=== PATIENT | female | born 1975 | race Caucasian/White ===

== ENCOUNTER 2017-05-10 09:24 | Emergency (ER) | payer OTHER ==
[~2017-05-10] VITALS: Ht 162.6 cm; Wt 47.7 kg
[2017-05-10] MEDS ORDERED: BYST5TAB2 PO (09:31)
[2017-05-10 11:16] VITALS: BP 166/89
--- NOTE | 2017-05-10 11:24 | REP ---
LEFT FOOT, FOUR VIEWS: There is no evidence of an acute fracture, dislocation or intrinsic bone disease. IMPRESSION: No fracture or dislocation. Signed by Jose Young MD 05/10/2017 07:28 P
== END 2017-05-10 11:17 | disposition home or self-care (01) ==
LOC: M ED 09:24
DX: S99.922A Unspecified injury of left foot, initial encounter (principal); X50.1XXA Overexertion from prolonged static or awkward postures, initial encounter; Y92.9 Unspecified place or not applicable; Y93.9 Activity, unspecified; Y99.9 Unspecified external cause status; I10 Essential (primary) hypertension; N80.9 Endometriosis, unspecified; Z79.899 Other long term (current) drug therapy

== ENCOUNTER 2017-07-20 18:22 | Emergency (ER) | payer OTHER ==
[~2017-07-20] VITALS: Ht 162.6 cm; Wt 48.6 kg
[~2017-07-20 18:22] MED LIST: BYST5TAB2 PO
[2017-07-20] MEDS ORDERED: MULTLIQ7 PO (18:40)
[2017-07-20] MEDS ORDERED: KETOROLAC 30 MG/ML VIAL (J1885) IM ONE (20:00)
--- NOTE | 2017-07-20 21:00 | REPUSA ---
Clinical history: Pain. Findings: Real-time transabdominal and transvaginal ultrasound images of the pelvis were obtained. An anteverted uterus is noted, measuring 8.2 x 4.7 x 5.9 cm. There is a left fundal fibroid measuring 4 .0 x 3.2 x 3.4 cm. The uterus demonstrates normal echotexture and echogenicity. The endometrial strip e measures 11 mm. The right ovary measures 3.3 x 2.2 x 4.0 cm. The left ovary measures 4.5 x 3.1 x 3. 4 cm . There is a complex left ovarian cyst measuring 2.4 x 1.5 x 2.0 cm. No adnexal masses are seen. Color Doppler flow is seen within both ovaries. There is trace amount of free fluid in the [place] c. Impression: 1. Complex left ovarian cyst. 2. Left fundal fibroid.
[2017-07-20] MEDS ORDERED: traMADol 50 MG TAB (BULK 4 TAB ED) PO ONE (21:15)
[2017-07-20] MEDS ORDERED: ULTR50TA8 PO (21:15)
[2017-07-20] MEDS ORDERED: KETO10TAB PO (21:21)
[2017-07-20 21:36] VITALS: BP 172/97
--- NOTE | 2017-07-21 10:52 | ED PDOC ---
Post-Departure Follow-Up pt sent certified letter re formal report of pelvic us . needs fu. 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 please obtain and fax to tobacco prevention health educator. Amanda Bills MD Jul 21, 2017 10:52
== END 2017-07-20 21:37 | disposition home or self-care (01) ==
LOC: M ED 18:22
DX: N83.202 Unspecified ovarian cyst, left side (principal); D25.9 Leiomyoma of uterus, unspecified; N80.9 Endometriosis, unspecified; Z79.899 Other long term (current) drug therapy
CPT/HCPCS: 76830; 76856; 81001; 81025; 87088; 87186; 93976; 96372; 99283; J1885

== ENCOUNTER → 2017-12-13 | Outpatient (REF) | payer OTHER ==
[2017-12-13 12:53] LABS: INFLUENZA A AMPLIFICATION NEGATIVE (NEGATIVE); INFLUENZA B AMPLIFICATION NEGATIVE (NEGATIVE)
== END ==
LOC: M LAB REF 12:04
DX: J02.9 Acute pharyngitis, unspecified (principal); R50.9 Fever, unspecified
CPT/HCPCS: 87430

== ENCOUNTER → 2018-11-01 | Outpatient (REF) | payer OTHER ==
[~2018-11-01] MED LIST changes: +KETO10TAB PO; +MULTLIQ7 PO; +ULTR50TA8 PO
[2018-11-01 13:46] LABS: INFLUENZA B AMPLIFICATION NEGATIVE (NEGATIVE)
[2018-11-04 09:55] LABS: INFLUENZA A AMPLIFICATION POSITIVE (NEGATIVE)
== END ==
LOC: M LAB REF 11:50
PROVIDERS: ATTEND Physician Assistant Medical
DX: J11.1 Influenza due to unidentified influenza virus with other respiratory manifestations (principal)

== ENCOUNTER → 2019-01-09 | Outpatient (REF) | payer OTHER ==
[2019-01-09 14:11] LABS: INFLUENZA A AMPLIFICATION NEGATIVE (NEGATIVE); INFLUENZA B AMPLIFICATION NEGATIVE (NEGATIVE)
== END ==
LOC: M LAB REF 13:28
PROVIDERS: ATTEND Nurse Practitioner Family
DX: J11.1 Influenza due to unidentified influenza virus with other respiratory manifestations (principal)

== ENCOUNTER → 2019-09-19 | Outpatient (REF) | payer OTHER | LOC: M LAB REF 13:00 | PROVIDERS: ATTEND Physician Assistant Medical | DX: J02.9 Acute pharyngitis, unspecified (principal) ==

== ENCOUNTER → 2019-11-18 | Outpatient (REF) | payer OTHER ==
[2019-11-18 15:24] LABS: INFLUENZA A AMPLIFICATION NEGATIVE (NEGATIVE); INFLUENZA B AMPLIFICATION NEGATIVE (NEGATIVE)
== END ==
LOC: M LAB REF 14:38
PROVIDERS: ATTEND Physician Assistant Medical
DX: R50.9 Fever, unspecified (principal)

== ENCOUNTER 2019-12-14 21:29 | Emergency (ER) | payer OTHER ==
[~2019-12-14] VITALS: Ht 162.6 cm; Wt 56.8 kg
[2019-12-15] MEDS ORDERED: LABETALOL HCL 100 MG/20 ML VIAL IV STA
[2019-12-15 00:16] VITALS: BP 148/86
[2019-12-15 00:16] LABS: HEMATOCRIT 44.1 % (36.0-47.0); MEAN CORPUSCULAR HEMOGLOBIN 30.5 pg (27.0-33.0); MEAN CORPUSCULAR VOLUME 89.6 fl (80.0-96.0); PLATELET COUNT, AUTOMATED 340 10^3/uL (150-450); RED BLOOD COUNT 4.92 10^6/uL (4.00-5.40); WHITE BLOOD COUNT 8.3 10^3/uL (4.0-10.0)
[2019-12-15 00:27] LABS: HCG, SERUM QUALITATIVE NEGATIVE (NEGATIVE)
[2019-12-15 00:33] LABS: BLOOD UREA NITROGEN 21 MG/DL (7-18); CALCIUM LEVEL 10.1 MG/DL (8.5-10.1); CARBON DIOXIDE LEVEL 26 MEQ/L (21-32); CHLORIDE LEVEL 105 MEQ/L (98-107); CREATININE FOR GFR 0.88 MG/DL (0.55-1.30); GLOMERULAR FILTRATION RATE > 60.0 (>58); GLUCOSE, FASTING 97 MG/DL (70-100); SODIUM LEVEL 136 MEQ/L (136-145)
[2019-12-15] MEDS ORDERED: ISOVUE-370 76% 100ML VIAL (Q9967) As Ordered ONE (00:45)
[2019-12-15 01:03] VITALS: BP 148/86
--- NOTE | 2019-12-15 01:24 | REPVR ---
PROCEDURE INFORMATION: Exam: CT Angiography Head With Contrast Exam date and time: 12/14/2019 11:37 PM Age: 44 years old Clinical indication: Other: Eye problem right; Prior surgery; Surgery date: 6+ months; Surgery type: Laser eye for aneurysm. . . PT states she not remember which eye. . . SX 15 years ago. . . ; Additional info: Eye pain HX optic aneurysm TECHNIQUE: Imaging protocol: Computed tomography angiography of the head with intravenous contrast. 3D rendering: MIP and/or 3D reconstructed images were created by the technologist. Radiation optimization: All CT scans at this facility use at least one of these dose optimization techniques: automated exposure control; mA and/or kV adjustment per patient size (includes targeted exams where dose is matched to clinical indication); or iterative reconstruction. Contrast material: ISO; Contrast volume: 75 ml; Contrast route: AC; COMPARISON: No relevant prior studies available. FINDINGS: Right internal carotid artery: Unremarkable. Intracranial segment is patent with no significant stenosis. No aneurysm. Right anterior cerebral artery: Unremarkable. No occlusion or significant stenosis. No aneurysm. Right middle cerebral artery: Unremarkable. No occlusion or significant stenosis. No aneurysm. Right posterior cerebral artery: Unremarkable. No occlusion or significant stenosis. No aneurysm. Right vertebral artery: Unremarkable. No occlusion or significant stenosis. No aneurysm. Left internal carotid artery: Unremarkable. Intracranial segment is patent with no significant stenosis. No aneurysm. Left anterior cerebral artery: Unremarkable. No occlusion or significant stenosis. No aneurysm. Left middle cerebral artery: Unremarkable. No occlusion or significant stenosis. No aneurysm. Left posterior cerebral artery: Unremarkable. No occlusion or significant stenosis. No aneurysm. Left vertebral artery: Unremarkable. No occlusion or significant stenosis. No aneurysm. Basilar artery: Unremarkable. No occlusion or significant stenosis. No aneurysm. HEAD: Sinuses: Mild mucosal thickening in the paranasal sinuses. IMPRESSION: 1. No large vessel arterial occlusion. 2. No cerebral aneurysm. Electronically signed by: Wojciech Whitaker On 12/15/2019 01:23:37 AM
[2019-12-15] MEDS ORDERED: traMADol 50 MG TAB PO ONE (01:45)
== END 2019-12-15 02:23 | disposition home or self-care (01) ==
LOC: M ED 21:29
DX: R51 Headache (principal); I10 Essential (primary) hypertension; Z79.899 Other long term (current) drug therapy; Z91.010 Allergy to peanuts; Z91.018 Allergy to other foods; Z88.2 Allergy status to sulfonamides
CPT/HCPCS: 70496; 80048; 84703; 85027; 99284; Q9967

== ENCOUNTER → 2020-10-04 | Outpatient (REF) | payer OTHER | LOC: M LAB REF 16:28 | PROVIDERS: ATTEND Physician Assistant | DX: Z11.59 Encounter for screening for other viral diseases (principal) ==

== ENCOUNTER → 2020-11-01 | Outpatient (REF) | payer OTHER | LOC: M LAB REF 22:06 | PROVIDERS: ATTEND Physician Assistant | DX: R50.9 Fever, unspecified (principal); R05 Cough ==

== ENCOUNTER 2021-04-09 23:41 | Emergency (ER) | payer OTHER ==
[~2021-04-09] VITALS: Ht 162.6 cm; Wt 55.4 kg
[2021-04-10] MEDS ORDERED: VALT1TAB PO (00:04)
[2021-04-10] MEDS ORDERED: APRITAB PO (00:05)
[2021-04-10] MEDS ORDERED: cefTRIAXone SOD 1GM VIAL (J0696 PER 250MG) IM ONE (06:20)
[2021-04-10] MEDS ORDERED: LIDOCAINE 1% SDV 5ML VIAL DILUENT ONE (06:20)
[2021-04-10] MEDS ORDERED: CEPH500C PO (06:24)
[2021-04-10 06:45] VITALS: BP 132/62
== END 2021-04-10 06:47 | disposition home or self-care (01) ==
LOC: M ED 23:41
DX: L03.114 Cellulitis of left upper limb (principal); I10 Essential (primary) hypertension; Z88.1 Allergy status to other antibiotic agents; Z88.2 Allergy status to sulfonamides; Z91.018 Allergy to other foods; Z91.010 Allergy to peanuts
CPT/HCPCS: 96372; 99283; J0696

== ENCOUNTER → 2021-09-25 | Outpatient (REF) | payer OTHER ==
[~2021-09-25] MED LIST changes: +APRITAB PO; +CEPH500C PO; +VALT1TAB PO
== END ==
LOC: M LAB REF 12:33
PROVIDERS: ATTEND Physician Assistant
DX: R05.9 Cough, unspecified (principal); R50.9 Fever, unspecified

== ENCOUNTER 2021-10-20 01:21 | Emergency (ER) | payer OTHER ==
[~2021-10-20] VITALS: Ht 162.6 cm; Wt 56.8 kg
[2021-10-20 01:22] VITALS: BP 194/90
[2021-10-20 04:46] LABS: RSV AMPLIFICATION NEGATIVE (NEGATIVE)
== END 2021-10-20 04:10 | disposition left against medical advice (07) ==
LOC: M ED 01:21
DX: Z53.21 Procedure and treatment not carried out due to patient leaving prior to being seen by health care provider (principal)

== ENCOUNTER → 2021-10-20 | Outpatient (REF) | payer OTHER | LOC: M LAB REF 15:50 | PROVIDERS: ATTEND Physician Assistant | DX: J02.9 Acute pharyngitis, unspecified (principal); R53.83 Other fatigue ==

== ENCOUNTER 2022-01-19 22:41 | Emergency (ER) | payer OTHER ==
[~2022-01-19] VITALS: Ht 162.6 cm; Wt 59.1 kg
[2022-01-19 22:42] VITALS: BP 177/93
[2022-01-20] MEDS ORDERED: KETOROLAC 30 MG/ML 1ML VIAL IM ONE
== END 2022-01-20 01:06 | disposition home or self-care (01) ==
LOC: M ED 22:41
DX: S92.331A Displaced fracture of third metatarsal bone, right foot, initial encounter for closed fracture (principal); S92.341A Displaced fracture of fourth metatarsal bone, right foot, initial encounter for closed fracture; W18.49XA Other slipping, tripping and stumbling without falling, initial encounter; Y92.9 Unspecified place or not applicable; Y93.9 Activity, unspecified; Y99.9 Unspecified external cause status
CPT/HCPCS: 73630; 96372; 99283; J1885

== ENCOUNTER 2022-03-29 01:34 | Emergency (ER) | payer OTHER ==
[~2022-03-29] VITALS: Ht 162.6 cm; Wt 61.4 kg
[2022-03-29] MEDS ORDERED: BESI0.6S OP (01:40)
[2022-03-29] MEDS ORDERED: FLUORESCEIN OPHTH 1 MG STRIP OS ONE (03:40)
[2022-03-29] MEDS ORDERED: TETRACAINE 0.5% OPHTH SOLN 4ML OS ONE (03:40)
[2022-03-29] MEDS ORDERED: ERYT5OIN25 OS (04:02)
[2022-03-29] MEDS ORDERED: ERYTHROMYCIN OPHTH OINT OS ONE (04:05)
[2022-03-29 04:09] VITALS: BP 126/73
== END 2022-03-29 04:10 | disposition home or self-care (01) ==
LOC: M ED 01:34
DX: S05.02XA Injury of conjunctiva and corneal abrasion without foreign body, left eye, initial encounter (principal); X58.XXXA Exposure to other specified factors, initial encounter; Y92.89 Other specified places as the place of occurrence of the external cause; Y93.89 Activity, other specified; Y99.8 Other external cause status; Y77.11 Contact lens associated with adverse incidents; I10 Essential (primary) hypertension; Z79.899 Other long term (current) drug therapy; Z91.010 Allergy to peanuts; Z88.1 Allergy status to other antibiotic agents; Z88.2 Allergy status to sulfonamides; Z91.018 Allergy to other foods

== ENCOUNTER → 2022-05-28 | Outpatient (REF) | payer OTHER ==
[~2022-05-28] MED LIST changes: +BESI0.6S OP; +ERYT5OIN25 OS
[2022-05-28 20:00] LABS: BASO # 0.1 10^3/uL (0.0-0.2); BASO % 0.7 % (0.0-1.0); EOS # 0.4 10^3/uL (0.0-0.5); EOS % 4.9 % (0.0-3.0); HEMATOCRIT 40.5 % (36.0-47.0); HEMOGLOBIN 13.4 g/dl (12.0-15.5); LYMPH # 2.7 10^3/uL (1.5-5.0); LYMPH % 36.1 % (24.0-44.0); MEAN CORPUSCULAR HGB CONC 33.1 g/dl (32.0-36.5); MEAN CORPUSCULAR VOLUME 87.7 fl (80.0-96.0); MONO # 0.7 10^3/uL (0.0-0.8); MONO % 9.5 % (2.0-8.0); NEUTROPHILS # 3.7 10^3/uL (1.5-8.5); NEUTROPHILS % 48.5 % (36.0-66.0); PLATELET COUNT, AUTOMATED 426 10^3/uL (150-450); RED BLOOD COUNT 4.62 10^6/uL (4.00-5.40); WHITE BLOOD COUNT 7.5 10^3/uL (4.0-10.0)
[2022-05-30 18:07] LABS: EBV AB TO NUCLEAR ANTIGEN >600.0 U/mL (0.0-17.9); EBV VIRAL CAPSID AG IgM <36.0 U/mL (0.0-35.9)
== END ==
LOC: M LAB REF 19:34
PROVIDERS: ATTEND Physician Assistant
DX: G50.1 Atypical facial pain (principal)

== ENCOUNTER → 2022-08-12 | Outpatient (CLI) | payer OTHER ==
[~2022-08-12] MED LIST changes: +METHACHOLINE KIT (J7674) INH ONE
== END ==
LOC: M CARPUL 09:36
PROVIDERS: ATTEND Internal Medicine Pulmonary Disease
DX: R06.00 Dyspnea, unspecified (principal)
CPT/HCPCS: 94070; J7674

== ENCOUNTER 2022-10-06 08:37 | Emergency (ER) | payer OTHER ==
[~2022-10-06] VITALS: Ht 162.6 cm; Wt 66.8 kg
[~2022-10-06 08:37] MED LIST changes: -METHACHOLINE KIT (J7674) INH ONE
[2022-10-06] MEDS ORDERED: GI COCKTAIL 50ML BTL(HYOSCYAMINE/MAALOX/LIDOCAINE VISCOUS)(1:3:1) PO ONE (09:00)
[2022-10-06] MEDS ORDERED: ONDANSETRON 4MG 2ML VIAL IV ONE (12:30)
[2022-10-06] MEDS ORDERED: NS 1,000 ML IV ONE (12:30)
[2022-10-06 13:37] LABS: APPEARANCE, URINE MANUAL HAZY (CLEAR)
[2022-10-06 13:38] LABS: COLOR, URINE MANUAL YELLOW (YELLOW)
[2022-10-06 13:40] LABS: PROTEIN, URINE MANUAL TRACE mg/dL (NEGATIVE); SPECIFIC GRAVITY,URINE MANUAL 1.026 (1.002-1.035)
[2022-10-06 13:41] LABS: GLUCOSE, URINE (UA) MANUAL NEGATIVE (NEGATIVE); KETONE, URINE MANUAL 2+ mg/dL (NEGATIVE); UROBILINOGEN, URINE MANUAL NORMAL (NORMAL)
[2022-10-06 13:42] LABS: BILIRUBIN, URINE MANUAL NEGATIVE (NEGATIVE); BLOOD URINE MANUAL POSITIVE (NEGATIVE); LEUKOCYTE ESTERASE, URINE MAN NEGATIVE (NEGATIVE); NITRITE, URINE MANUAL NEGATIVE (NEGATIVE)
[2022-10-06 13:45] LABS: BASO % 0.2 % (0.0-1.0); EOS % 0.3 % (0.0-3.0); HEMATOCRIT 45.6 % (36.0-47.0); HEMOGLOBIN 15.2 g/dl (12.0-15.5); LYMPH # 0.7 10^3/uL (1.5-5.0); MEAN CORPUSCULAR HEMOGLOBIN 28.7 pg (27.0-33.0); MEAN CORPUSCULAR HGB CONC 33.3 g/dl (32.0-36.5); MONO # 0.3 10^3/uL (0.0-0.8); MONO % 4.2 % (2.0-8.0); NEUTROPHILS % 83.1 % (36.0-66.0); PLATELET COUNT, AUTOMATED 381 10^3/uL (150-450)
[2022-10-06 13:52] LABS: SQUAMOUS EPITHELIAL CELL URINE MOD AMOUNT /hpf (SMALL AMT)
[2022-10-06 13:53] LABS: BACTERIA, URINE SMALL AMOUNT; HYALINE CAST, URINE 0-1 /lpf (0-1)
[2022-10-06 14:06] LABS: LIPASE 27 U/L (12-53)
[2022-10-06 14:08] LABS: ALBUMIN 3.4 G/DL (3.2-5.2); ALKALINE PHOSPHATASE 65 U/L (46-116); ALT/SGPT 23 U/L (7.0-40); AST/SGOT 24 U/L (<34); BILIRUBIN,DIRECT 0.1 MG/DL (<0.4); BILIRUBIN,TOTAL 0.5 MG/DL (0.3-1.2); BLOOD UREA NITROGEN 13 MG/DL (9-23); CALCIUM LEVEL 8.8 MG/DL (8.5-10.1); CARBON DIOXIDE LEVEL 23 MMOL/L (20-31); CHLORIDE LEVEL 104 MMOL/L (98-107); CREATININE FOR GFR 0.74 MG/DL (0.55-1.30); GLOMERULAR FILTRATION RATE > 60.0 (>58); GLUCOSE, FASTING 98 MG/DL (60-100); HCG, SERUM QUANTITATIVE < 2.6 MIU/ML (<4.2); POTASSIUM SERUM 4.2 MMOL/L (3.5-5.1); SODIUM LEVEL 137 MMOL/L (136-145); TOTAL PROTEIN 7.4 G/DL (5.7-8.2)
[2022-10-06] MEDS ORDERED: KETOROLAC 30 MG/ML 1ML VIAL IV ONE (14:25)
[2022-10-06 14:37] LABS: RSV AMPLIFICATION NEGATIVE (NEGATIVE)
[2022-10-06] MEDS ORDERED: ISOVUE-370 76% 100ML VIAL As Ordered ONE (14:41)
[2022-10-06 16:32] LABS: CK-MB VALUE MASS < 1.0 NG/ML (<3.6)
[2022-10-06 16:34] LABS: CPK CREATINE PHOSPHOKINASE 73 U/L (34-145); MB/CK RELATIVE INDEX 1.36 (< OR =4)
[2022-10-06 18:31] LABS: CK-MB VALUE MASS < 1.0 NG/ML (<3.6); CPK CREATINE PHOSPHOKINASE 54 U/L (34-145); MB/CK RELATIVE INDEX 1.85 (< OR =4)
[2022-10-06] MEDS ORDERED: COLA100C5 PO (18:37)
[2022-10-06] MEDS ORDERED: OMEP40CA4 PO (18:37)
[2022-10-06] MEDS ORDERED: AMOX875T2 PO (18:37)
[2022-10-06] MEDS ORDERED: ONDA4TAB6 PO (18:57)
[2022-10-06 19:12] VITALS: BP 162/85
== END 2022-10-06 19:13 | disposition home or self-care (01) ==
LOC: M ED 08:37
DX: N83.8 Other noninflammatory disorders of ovary, fallopian tube and broad ligament (principal); D25.9 Leiomyoma of uterus, unspecified; K59.00 Constipation, unspecified; K21.9 Gastro-esophageal reflux disease without esophagitis; J01.90 Acute sinusitis, unspecified; I10 Essential (primary) hypertension; Z88.2 Allergy status to sulfonamides; Z91.010 Allergy to peanuts; Z79.899 Other long term (current) drug therapy
CPT/HCPCS: 71046; 74177; 80048; 80076; 81000; 81015; 82550; 82553; 83690; 84484; 84702; 85025; 87631; 93005; 96361; 96374; 99284; J1885; J2405

== ENCOUNTER → 2022-11-29 | Outpatient (REF) | payer OTHER ==
[~2022-11-29] MED LIST changes: +AMOX875T2 PO; +COLA100C5 PO; +OMEP40CA4 PO; +ONDA4TAB6 PO
[2022-11-29 18:45] LABS: RSV AMPLIFICATION NEGATIVE (NEGATIVE)
== END ==
LOC: M LAB REF 17:57
PROVIDERS: ATTEND Physician Assistant
DX: Z20.828 Contact with and (suspected) exposure to other viral communicable diseases (principal); Z11.59 Encounter for screening for other viral diseases

== ENCOUNTER 2024-06-18 23:47 | Emergency (ER) | payer OTHER ==
[~2024-06-18] VITALS: Ht 162.6 cm; Wt 72.1 kg
[~2024-06-18 23:47] MED LIST changes: +BYST1TAB2 PO; -BYST5TAB2 PO; +ONDA-282 PO; -ONDA4TAB6 PO
[2024-06-18 23:49] VITALS: BP 136/78; TEMP 98; O2SAT 99
[2024-06-19] MEDS: FAMOTIDINE 20 MG TAB PO ONE (00:20)
[2024-06-19] MEDS: predniSONE 20 MG TAB PO ONE (00:33)
[2024-06-19] MEDS ORDERED: PRED20TA PO (00:54)
[2024-06-19] MEDS ORDERED: HYDR-3363 PO (00:54)
== END 2024-06-19 01:47 | disposition home or self-care (01) ==
LOC: M ED 23:47
DX: T63.441A Toxic effect of venom of bees, accidental (unintentional), initial encounter (principal); I10 Essential (primary) hypertension; K21.9 Gastro-esophageal reflux disease without esophagitis; Z91.010 Allergy to peanuts; Z88.2 Allergy status to sulfonamides; Z91.048 Other nonmedicinal substance allergy status; Z79.2 Long term (current) use of antibiotics; Z79.83 Long term (current) use of bisphosphonates; Z79.899 Other long term (current) drug therapy
CPT/HCPCS: 99283; J7512

== ENCOUNTER 2025-07-23 08:46 | Emergency (ER) | payer OTHER ==
[~2025-07-23] VITALS: Ht 162.6 cm; Wt 71.6 kg
[~2025-07-23 08:46] MED LIST changes: +HYDR-3363 PO; +PRED20TA PO
[2025-07-23] MEDS ORDERED: ASPI81CH33 PO (08:53)
[2025-07-23] MEDS ORDERED: ISOVUE-370 76% 100 ML VIAL As Ordered ONE (09:13)
[2025-07-23 09:16] LABS: BASO # 0.1 10^3/uL (0.0-0.2); BASO % 0.5 % (0.0-1.0); EOS # 0.1 10^3/uL (0.0-0.5); EOS % 0.9 % (0.0-3.0); LYMPH # 1.6 10^3/uL (1.5-5.0); LYMPH % 15.1 % (24.0-44.0); MONO # 0.8 10^3/uL (0.0-0.8); MONO % 7.2 % (2.0-8.0); NEUTROPHILS # 8.0 10^3/uL (1.5-8.5); NEUTROPHILS % 76.0 % (36.0-66.0); PLATELET COUNT, AUTOMATED 473 10^3/uL (150-450)
[2025-07-23 09:30] LABS: INR 0.87
[2025-07-23 09:43] LABS: ALT/SGPT 236 U/L (7.0-40); AST/SGOT 328 U/L (<34); CALCIUM LEVEL 9.9 MG/DL (8.5-10.1); CARBON DIOXIDE LEVEL 24 MMOL/L (20-31); CHLORIDE LEVEL 104 MMOL/L (98-107); CK-MB VALUE MASS 1.7 NG/ML (<3.6); CREATININE FOR GFR 0.62 MG/DL (0.55-1.30); GLOMERULAR FILTRATION RATE > 90.0 (>51); POTASSIUM SERUM 4.2 MMOL/L (3.5-5.1); SODIUM LEVEL 138 MMOL/L (136-145)
[2025-07-23 09:45] LABS: FREE T4 1.12 NG/DL (0.89-1.76)
[2025-07-23 09:50] LABS: CPK CREATINE PHOSPHOKINASE 96 U/L (34-145); MB/CK RELATIVE INDEX 1.77 (< OR =4)
[2025-07-23] MEDS: ONDANSETRON 4MG 2ML VIAL IV ONE (09:50)
[2025-07-23] MEDS: ACETAMINOPHEN *IV* 1,000 MG in IV 1 EA IV ONE (09:50)
[2025-07-23 10:31] LABS: CK-MB VALUE MASS < 1.0 NG/ML (<3.6); CPK CREATINE PHOSPHOKINASE 69 U/L (34-145)
[2025-07-23] MEDS: PIPERACILLIN/TAZOBACTAM SOD 4.5 GM in DEXTROSE 5% (D5W) ADV/MINI-BAG 50 ML IV ONE (11:06)
[2025-07-23] MEDS: NS (Normal Saline) 0.9% 1,000 ML IV ONE (11:07)
[2025-07-23 13:30] VITALS: BP 161/91; TEMP 96.7
[2025-07-23 13:31] VITALS: O2SAT 100
== END 2025-07-23 14:08 | disposition home or self-care (01) ==
LOC: M ED 08:46
DX: R07.9 Chest pain, unspecified (principal); R10.9 Unspecified abdominal pain; K80.20 Calculus of gallbladder without cholecystitis without obstruction; R74.01 Elevation of levels of liver transaminase levels; I10 Essential (primary) hypertension; K76.0 Fatty (change of) liver, not elsewhere classified; Z88.2 Allergy status to sulfonamides; Z91.010 Allergy to peanuts; Z79.82 Long term (current) use of aspirin; Z79.899 Other long term (current) drug therapy
CPT/HCPCS: 71045; 71275; 74174; 74181; 76705; 80047; 80048; 80076; 82550; 82553; 83690; 83880; 84439; 84443; 84484; 85025; 85610; 93005; 93041; 94760; 96361; 96365; 96375; 99285; J0131; J2405; J2543; Q9967